=== PATIENT | male | born 1970 | race Caucasian/White ===

== ENCOUNTER 2023-10-14 12:54 | Emergency (ER) | payer MEDICARE ==
[2023-10-14 13:12] VITALS: BP 127/73; O2SAT 100
--- NOTE | 2023-10-14 16:03 | ED Physician Documentation ---
PD HPI BACK PAIN - Stated complaint Stated Complaint: LOWER BACK PX AND BRUISING - Chief complaint Chief Complaint: Trauma Ch/Bk - Additional information Additional information: 53-year-old male no pertinent past medical history presents emergency department for left flank pain and kidney pain after having a fall. He was moving a washer and dryer lost his balance fell backwards while holding the washer dryer onto the bench hitting his left flank area. He says that he is very worried about his kidney he has not had any hematuria no nausea vomiting since. Patient also has a right elbow laceration/abrasion that he wanted also looked at. Able to flex and extend his elbow without any difficulty. Did not hit his head. PD PAST MEDICAL HISTORY - Past Medical History Past Medical History: Yes Cardiovascular: None Respiratory: None Neuro: None Endocrine/Autoimmune: None GI: GERD : None HEENT: None Psych: None Musculoskeletal: None Derm: None - Past Surgical History Past Surgical History: No - Present Medications Home Medications: Ambulatory Orders Medication Instructions Recorded Confirmed Albuterol Sulf [Ventolin Hfa 1 - 2 puffs INH Q4HR PRN 10/14/23 10/14/23 Inhaler] Cyclobenzaprine [Flexeril] 10 mg PO TID PRN 6 Days #20 tablet 10/14/23 Famotidine 40 mg PO HS 10/14/23 10/14/23 Pantoprazole [Protonix] 40 mg PO DAILY 10/14/23 10/14/23 - Allergies Allergies/Adverse Reactions: Allergies Allergy/AdvReac Type Severity Reaction Status Date / Time Penicillins Allergy Anaphylaxis Verified 10/14/23 13:06 - Social History Does the pt smoke?: No Smoking Status: Never smoker Does the pt drink ETOH?: Yes Does the pt have substance abuse?: No - Immunizations Immunizations are current?: Yes - POLST Patient has POLST: No PD ED PE NORMAL - Vitals Vital signs reviewed: Yes - General General: Alert and oriented X 3, No acute distress, Well developed/nourished - Cardiac Cardiac: RRR - Respiratory Respiratory: No respiratory distress, Clear bilaterally - Back Back: No CVA TTP, Other (Right flank superficial abrasion and ecchymosis tenderness with palpation.) - Extremities Extremities: No edema - Neuro Neuro: Alert and oriented X 3, oiler and greaser 2-12 intact, No motor deficit, No sensory deficit, Normal speech Eye Opening: Spontaneous Motor: Obeys Commands Verbal: Oriented GCS Score: 15 - Psych Psych: Normal mood, Normal affect Results - Vitals Vitals: Vital Signs - 24 hr 10/14/23 13:06 Temperature 36.5 C Heart Rate 63 Respiratory 16 Rate Blood Pressure 127/73 O2 Saturation 100 Oxygen O2 Source Room air - Rads (name of study) CT KUB Relevant Findings:: Final report received, EMP independent interpretation of test, Other (Mild subcutaneous stranding along the right flank. No acute traumatic injury within the abdomen or pelvis.) PD Medical Decision Making - ED course ED course: 53-year-old male presents emergency department for further evaluation of possible right kidney injury. Patient says that he fell while holding something very heavy onto a large bench hitting his right flank area. No nausea or vomiting since the fall he has no hematuria. CT scan was complete for further evaluation and he does not appear to have any kidney injury. There is mild subcutaneous stranding on the right flank area which is where patient did have some erythema and pain with palpation where he fell onto the bench. His pain is well-controlled with a Toradol injection as well as 1 Flexeril dose. He is told how to manage his pain at home no further interventions warranted at this point in time patient was informed that he is can be very sore over the next couple days return precautions given and told to follow-up with primary care provider as needed all questions answered patient safe for discharge. Departure - Departure Disposition: 01 Home, Self Care Clinical Impression: Ground-level fall Contusion, flank Qualifiers: Encounter type: initial encounter Qualified Code(s): S30.1XXA - Contusion of abdominal wall, initial encounter Instructions: ED Contusion Back Prescriptions: Cyclobenzaprine [Flexeril] 10 mg PO TID PRN 6 Days #20 tablet PRN Reason: Spasms Comments: Thank you for trusting us with your care. We have completed a CT scan and we do not see any kidney damage or injury at this point in time. We have given you a Toradol shot here in the emergency department you can take 500 mg of Aleve at home every 12 hours and 1000 mg of Tylenol every 8 hours for any pain and discomfort. Apply ice to the sore areas 20 minutes on 1 hour off as well as lidocaine patches something you can buy [id number] as needed. Off all this has not resolved your pain then you can take 1 Flexeril up to 3 times a day as needed for pain and discomfort. Please come back to the ER if you are starting to notice any nausea vomiting significantly worsening symptoms, or any other severe emergent pain. Forms: PCP List Discharge Date/Time: 10/14/23 17:28
[2023-10-14] MEDS: KETOROLAC 30 MG/ML VIAL IM STA (16:29)
--- NOTE | 2023-10-14 16:45 | CT Report ---
PROCEDURE: KUB INDICATIONS: right kidney pain after falling onto bench TECHNIQUE: A CT scan of the abdomen and pelvis was performed without the use of intravenous contrast. Images we re recorded and evaluated at appropriate window settings. Reformats: coronal and sagittal. For radiat ion dose reduction, the following was used: automated exposure control, adjustment of mA and/or kV ac cording to patient size. COMPARISON: None. FINDINGS: Image quality: Diagnostic. Lower chest: Unremarkable. Liver: No contour-deforming mass. Gallbladder: No radiopaque stones or wall thickening. Biliary tree: No intrahepatic or extrahepatic dilation, accounting for age. Spleen: No splenomegaly. Pancreas: No pancreatic ductal dilation. Adrenals: No adrenal nodule. Kidneys and ureters: No hydronephrosis. No contour-deforming mass. Stomach, bowel and peritoneum: No gastric or small bowel dilation. No abnormal wall thickening. No pa thologic free fluid. Few scattered diverticula without evidence of acute diverticulitis. Normal appen rochelle. Lymph nodes: No central or retroperitoneal adenopathy. Vessels: No infrarenal aortic aneurysm. Vascular vascular opacifications. Reproductive organs: Unremarkable. Bladder: Bladder wall thickness is normal, accounting for underdistention. No calcified bladder stone s. Pelvic lymph nodes: No adenopathy by size criteria. Bones: No aggressive osseous abnormality. Other: No significant ventral or inguinal hernia. Subcutaneous stranding along the right flank. IMPRESSION: Mild subcutaneous stranding along the right flank. No acute traumatic injury within the abdomen or pe lvis. Reviewed by: Eliel Andrea MD on 10/14/2023 3:44 PM AKDT Approved by: Eliel Andrea MD on 10/14/2023 3:44 PM AKDT Station ID: [id number]
[2023-10-14] MEDS: CYCLOBENZAPRINE 10 MG TABLET PO STA (17:21)
== END 2023-10-14 17:28 | disposition home or self-care (01) ==
LOC: ED 12:54
DX: S30.1XXA Contusion of abdominal wall, initial encounter (principal); S50.312A Abrasion of left elbow, initial encounter; X50.0XXA Overexertion from strenuous movement or load, initial encounter; W01.190A Fall on same level from slipping, tripping and stumbling with subsequent striking against furniture, initial encounter; Y93.89 Activity, other specified
CPT/HCPCS: 74176; 96372; 99284; A9270